=== PATIENT | female | born 1985 | race Caucasian/White ===

== ENCOUNTER 2016-10-17 20:42 | Emergency (ER) | payer OTHER ==
[2016-10-17] MEDS ORDERED: CEFTRIAXONE 1 GRAM DUPLEX 50 ML IV ONE (21:11)
[2016-10-17] MEDS ORDERED: ONDANSETRON 4 MG/2ML 2 ML VIAL ONE (21:44)
[2016-10-17] MEDS ORDERED: KETOROLAC TROMETHAMINE 15 MG/ML VIAL ONE (21:44)
[2016-10-17] MEDS ORDERED: LACTATED RINGERS 1,000 ML ONE (21:44)
[2016-10-17 22:43] LABS: SPECIFIC GRAVITY 1.025 (1.001-1.030); URINE BILIRUBIN NEGATIVE (NEGATIVE); URINE BLOOD 4+ (NEGATIVE); URINE GLUCOSE (UA) NEGATIVE (NEGATIVE); URINE LEUKOCYTE ESTERASE TRACE (NEGATIVE); URINE NITRITE NEGATIVE (NEGATIVE); URINE PROTEIN TRACE (NEGATIVE); URINE UROBILINOGEN NORMAL (0-1 mg/dl)
[2016-10-17 22:45] LABS: URINE APPEARANCE HAZY; URINE COLOR AMBER
[2016-10-17 22:46] LABS: ABSOLUTE NEUTROPHIL COUNT 7.6 K/mm3 (1.8-7.7); BASO # 0.1 K/mm3 (0.0-0.2); BASO % 0.5 % (0.2-1.0); EOS # 0.1 (0.0-0.5); HEMATOCRIT 40.7 % (37.0-47.0); HEMOGLOBIN 13.4 gm/l (12.0-16.0); IMM NEUT% 0.3 % (0-1); LYMPH # 3.7 (1.0-4.8); LYMPH % 30.2 % (15-45); MEAN CELL VOLUME 95.1 fl (81.0-99.0); MEAN CORPUSCULAR HEMOGLOBIN 31.3 pg (27.0-31.0); MEAN CORPUSCULAR HGB CONC 32.9 g/dl (33.0-37.0); MEAN PLATELET VOLUME 9.1 fl (7.4-10.4); MONO # 0.8 (0.0-0.8); MONO % 6.1 % (4-12); NEUT % 61.9 % (43-75); PLATELET COUNT 323 K/mm3 (130-400); RED CELL DISTRIBUTION WIDTH 12.3 % (11.5-14.5)
[2016-10-17 23:00] LABS: URINE BACTERIA 1+; URINE EPITHELIAL CELLS 15-25 /hpf; URINE WBC 0-3 /hpf
[2016-10-17 23:07] LABS: ALB/GLOB RATIO 1.5 (>1.0); ALBUMIN 4.3 gm/dL (3.5-5.7)
[2016-10-18] MEDS ORDERED: HYDROCODONE/ACETAMINOPHEN 5/325MG TABLET ONE (00:03)
--- NOTE | 2016-10-18 08:00 | US ---
PELVIC ULTRASOUND HISTORY: Right lower quadrant pain, known ovarian cyst. Transabdominal and transvaginal pelvic sonography performed. TRANSABDOMINAL IMAGING UTERINE DIMENSIONS: 7.4 x 4.7 x 3.3 cm cm. BLADDER: No abnormal filling defect. TRANSVAGINAL IMAGING: ENDOMETRIAL THICKNESS: 3 mm. FOCAL UTERINE LESIONS: None. RIGHT OVARY: 4.3 x 3.9 x 3.0 cm for a volume of 26.2 cc. LEFT OVARY: 2.3 x 1.5 x 1 point cm for volume of 2.1 cc. OVARIAN BLOOD FLOW: Documented bilaterally. DOMINANT ADNEXAL LESIONS: 3.9 cm simple right ovarian cyst, almost certainly benign. FREE FLUID: None. IMPRESSION: No endometrial thickening or free fluid. Preserved ovarian blood flow. 3.9 cm right ovarian simple cyst. Preliminary report relayed to the Emergency Medicine medical service by Dr. Ibry on 10/17/2016 at 2236 hours.
[2016-10-19 14:16] LABS: CHLAMYDIA BD Negative (Negative); N.GONORRHOEAE BD Negative (Negative); SOURCE Urine (())
== END 2016-10-18 00:18 | disposition home or self-care (01) ==
LOC: ED 20:42
DX: N83.201 Unspecified ovarian cyst, right side (principal); R10.31 Right lower quadrant pain; R11.2 Nausea with vomiting, unspecified
CPT/HCPCS: 87491; 87591; 84703; 85025; 80053; 81001; 76856; 76830; 96375; 99284; 96374; 99283; J1885; J2405; J7120; A9270; J0696